=== PATIENT | female | born 1995 | race Caucasian/White ===

== ENCOUNTER → 2016-11-09 | Outpatient (CLI) | payer OTHER ==
[2016-11-09 12:51] LABS: MEAN CORPUSCULAR HEMOGLOBIN 32.6 pg (27.0-33.0); MEAN CORPUSCULAR HGB CONC 33.2 g/dl (32.0-36.5); RED CELL DISTRIBUTION WIDTH 12.8 % (11.5-14.5); WHITE BLOOD COUNT 8.3 K/mm3 (4.0-10.0)
[2016-11-09 13:14] LABS: ALBUMIN 3.3 GM/DL (3.2-5.2); ALBUMIN/GLOBULIN RATIO 0.97 (1.00-1.93); ALKALINE PHOSPHATASE 43 U/L (45-117); ALT/SGPT 18 U/L (12-78); ANION GAP 9 MEQ/L (8-16); AST/SGOT 14 U/L (15-37); BILIRUBIN,TOTAL 0.5 MG/DL (0.2-1.0); BLOOD UREA NITROGEN 13 MG/DL (7-18); CARBON DIOXIDE LEVEL 25 MEQ/L (21-32); CHLORIDE LEVEL 106 MEQ/L (98-107); GLOMERULAR FILTRATION RATE > 60.0 (>60); GLUCOSE, FASTING 80 MG/DL (70-105); POTASSIUM SERUM 4.5 MEQ/L (3.5-5.1); SODIUM LEVEL 140 MEQ/L (136-145); TOTAL PROTEIN 6.7 GM/DL (6.4-8.2)
== END | disposition home or self-care (01) ==
LOC: M SMT 09:54
PROVIDERS: ATTEND Nurse Practitioner Family
DX: L50.1 Idiopathic urticaria (principal)

== ENCOUNTER → 2016-12-28 | Outpatient (CLI) | payer OTHER ==
[2016-12-28 17:25] LABS: MEAN CORPUSCULAR HEMOGLOBIN 32.5 pg (27.0-33.0); MEAN CORPUSCULAR HGB CONC 34.5 g/dl (32.0-36.5); MEAN CORPUSCULAR VOLUME 94.2 fl (80.0-96.0); RED CELL DISTRIBUTION WIDTH 12.2 % (11.5-14.5); WHITE BLOOD COUNT 8.7 K/mm3 (4.0-10.0)
[2016-12-28 18:07] LABS: ALBUMIN 3.6 GM/DL (3.2-5.2); ALBUMIN/GLOBULIN RATIO 1.03 (1.00-1.93); ALKALINE PHOSPHATASE 48 U/L (45-117); ALT/SGPT 13 U/L (12-78); ANION GAP 10 MEQ/L (8-16); AST/SGOT 15 U/L (15-37); BILIRUBIN,TOTAL 0.5 MG/DL (0.2-1.0); BLOOD UREA NITROGEN 8 MG/DL (7-18); CALCIUM LEVEL 8.8 MG/DL (8.5-10.1); CARBON DIOXIDE LEVEL 24 MEQ/L (21-32); CHLORIDE LEVEL 108 MEQ/L (98-107); CREATININE FOR GFR 0.83 MG/DL (0.55-1.02); GLOMERULAR FILTRATION RATE > 60.0 (>60); GLUCOSE, FASTING 80 MG/DL (70-105); POTASSIUM SERUM 4.2 MEQ/L (3.5-5.1); SODIUM LEVEL 142 MEQ/L (136-145); TOTAL PROTEIN 7.1 GM/DL (6.4-8.2)
== END ==
LOC: M LAB 16:33
PROVIDERS: ATTEND Allergy & Immunology Allergy
DX: L50.1 Idiopathic urticaria (principal)

== ENCOUNTER → 2017-03-08 | Outpatient (CLI) | payer OTHER ==
[2017-03-08 13:20] LABS: BASO % 0.2 % (0.0-1.0); EOS % 0.1 % (0.0-3.0); LYMPH # 2.6 K/mm3 (1.5-6.5); LYMPH % 27.8 % (24.0-44.0); MEAN CORPUSCULAR HEMOGLOBIN 32.8 pg (27.0-33.0); MEAN CORPUSCULAR HGB CONC 33.7 g/dl (32.0-36.5); MEAN CORPUSCULAR VOLUME 97.2 fl (80.0-96.0); MONO # 0.3 K/mm3 (0.0-0.8); MONO % 3.5 % (0.0-5.0); NEUTROPHILS # 6.3 K/mm3 (1.8-7.7); NEUTROPHILS % 67.5 % (36.0-66.0); RED CELL DISTRIBUTION WIDTH 12.2 % (11.5-14.5); WHITE BLOOD COUNT 9.4 K/mm3 (4.0-10.0)
[2017-03-08 13:38] LABS: ALBUMIN 3.5 GM/DL (3.2-5.2); ALBUMIN/GLOBULIN RATIO 0.85 (1.00-1.93); ALKALINE PHOSPHATASE 51 U/L (45-117); ALT/SGPT 13 U/L (12-78); ANION GAP 9 MEQ/L (8-16); AST/SGOT 10 U/L (15-37); BILIRUBIN,TOTAL 0.6 MG/DL (0.2-1.0); BLOOD UREA NITROGEN 12 MG/DL (7-18); CALCIUM LEVEL 9.2 MG/DL (8.5-10.1); CARBON DIOXIDE LEVEL 24 MEQ/L (21-32); CHLORIDE LEVEL 106 MEQ/L (98-107); CREATININE FOR GFR 0.93 MG/DL (0.55-1.02); GLOMERULAR FILTRATION RATE > 60.0 (>60); GLUCOSE, FASTING 77 MG/DL (70-105); POTASSIUM SERUM 4.8 MEQ/L (3.5-5.1); SODIUM LEVEL 139 MEQ/L (136-145); TOTAL PROTEIN 7.6 GM/DL (6.4-8.2)
== END ==
LOC: M SMT 09:38
PROVIDERS: ATTEND Nurse Practitioner Family
DX: L50.1 Idiopathic urticaria (principal)

== ENCOUNTER → 2017-05-09 | Outpatient (CLI) | payer OTHER ==
[2017-05-09 13:39] LABS: MEAN CORPUSCULAR HEMOGLOBIN 32.6 pg (27.0-33.0); MEAN CORPUSCULAR HGB CONC 34.3 g/dl (32.0-36.5); RED CELL DISTRIBUTION WIDTH 12.5 % (11.5-14.5); WHITE BLOOD COUNT 6.6 K/mm3 (4.0-10.0)
[2017-05-09 13:54] LABS: ALBUMIN 3.4 GM/DL (3.2-5.2); ALKALINE PHOSPHATASE 46 U/L (45-117); ALT/SGPT 17 U/L (12-78); ANION GAP 9 MEQ/L (8-16); AST/SGOT 10 U/L (15-37); BILIRUBIN,TOTAL 0.5 MG/DL (0.2-1.0); BLOOD UREA NITROGEN 16 MG/DL (7-18); CALCIUM LEVEL 8.9 MG/DL (8.5-10.1); CARBON DIOXIDE LEVEL 24 MEQ/L (21-32); CHLORIDE LEVEL 108 MEQ/L (98-107); CREATININE FOR GFR 1.04 MG/DL (0.55-1.02); GLOMERULAR FILTRATION RATE > 60.0 (>60); GLUCOSE, FASTING 67 MG/DL (70-105); POTASSIUM SERUM 4.6 MEQ/L (3.5-5.1); SODIUM LEVEL 141 MEQ/L (136-145); TOTAL PROTEIN 6.8 GM/DL (6.4-8.2)
== END ==
LOC: M SMT 09:22
PROVIDERS: ATTEND Nurse Practitioner Family
DX: L50.8 Other urticaria (principal)

== ENCOUNTER → 2017-07-12 | Outpatient (CLI) | payer OTHER ==
[2017-07-12 17:21] LABS: CREATININE FOR GFR 0.85 MG/DL (0.55-1.02); GLOMERULAR FILTRATION RATE > 60.0 (>60)
== END ==
LOC: M LAB 07-10 16:28
PROVIDERS: ATTEND Allergy & Immunology
DX: Z79.899 Other long term (current) drug therapy (principal)

== ENCOUNTER → 2021-04-25 | Outpatient (REF) | payer OTHER ==
[2021-04-25 13:37] LABS: HEMATOCRIT 33.9 % (36.0-47.0); HEMOGLOBIN 11.4 g/dl (12.0-15.5); MEAN CORPUSCULAR HEMOGLOBIN 34.8 pg (27.0-33.0); MEAN CORPUSCULAR HGB CONC 33.6 g/dl (32.0-36.5); MEAN CORPUSCULAR VOLUME 103.4 fl (80.0-96.0); PLATELET COUNT, AUTOMATED 294 10^3/uL (150-450); RED BLOOD COUNT 3.28 10^6/uL (4.00-5.40); WHITE BLOOD COUNT 10.5 10^3/uL (4.0-10.0)
[2021-04-25 15:18] LABS: CHLAMYDIA DNA AMPLIFICATION NEGATIVE (NEGATIVE); GC DNA AMPLIFICATION NEGATIVE (NEGATIVE)
== END ==
LOC: M PLALAB 08:23
PROVIDERS: ATTEND Advanced Practice Midwife
DX: O10.012 Pre-existing essential hypertension complicating pregnancy, second trimester (principal); Z3A.00 Weeks of gestation of pregnancy not specified
CPT/HCPCS: 82950; 85027; 86850; 86900; 86901; 87491; 87591; G0463

== ENCOUNTER → 2021-06-13 | Outpatient (CLI) | payer OTHER ==
--- NOTE | 2021-06-13 15:23 | REP ---
INDICATION: HYPERTENSION/GROWTH/KRISTEN. COMPARISON: None. TECHNIQUE: Multiple ultrasonographic images of the gravid uterus for size and amniotic fluid volume. There are no comparison studies in our film file. FINDINGS: There is a single intrauterine gestation in a breech presentation. heart rate is 139 beats per minute. The placenta is anterior with grade 1 maturity. There is no placenta previa. Amniotic fluid index is 9.2 (8.4-24.4). Cervix measures 3.6 cm length. The composite ultrasound gestational age by today's ultrasound is 32 weeks 2 days with an CISCO of 08/06/2021. The LMP is unknown. weight is 1906 g/4 lb, 3 oz. This is the 24th percentile for 32 weeks 5 days. Umbilical artery Doppler assessment: PSV: 33.6 centimeters/second. EDV: 17.0 centimeters/second. S/D: 1.98 (1.80-3.80). RI: 0.49 (0.49-0.74). IMPRESSION: Amniotic fluid index is in the low normal range. <Electronically signed by Albert Lowe > 06/13/21 [id number]
== END ==
LOC: M WHC 13:56
PROVIDERS: ATTEND Advanced Practice Midwife
DX: O10.019 Pre-existing essential hypertension complicating pregnancy, unspecified trimester (principal); Z3A.32 32 weeks gestation of pregnancy
CPT/HCPCS: 59025; 76816; 76820; 90715; G0463

== ENCOUNTER 2021-06-23 09:56 | Inpatient (IN) | payer OTHER ==
[~2021-06-23] VITALS: Ht 170.2 cm; Wt 80.0 kg
[2021-06-23] MEDS ORDERED: TUMS500C PO (10:17)
[2021-06-23] MEDS ORDERED: PRENTAB9 PO (10:17)
[2021-06-23] MEDS ORDERED: MAGN250T7 PO (10:17)
[2021-06-23] MEDS ORDERED: ASPI81CH33 PO (10:17)
[2021-06-23] MEDS ORDERED: LABE100T5 PO (10:17)
[2021-06-23] MEDS ORDERED: HOME MED LIST COMPLETE! XX SCH (10:30)
[2021-06-23] MEDS ORDERED: BETAMETHASONE SOLUSPAN 6MG/ML 5ML VIAL (J0702 PER 3MG) IM ONE (11:00)
[2021-06-23 11:27] VITALS: BP 127/77
[2021-06-23] MEDS: BETAMETHASONE SOLUSPAN 6MG/ML 5ML VIAL (J0702 PER 3MG) IM SCH (11:29)
--- NOTE | 2021-06-23 11:35 | REP ---
INDICATION: BPP with KRISTEN. COMPARISON: 06/13/2021. TECHNIQUE: Real-time sonographic evaluation of gravid uterus performed. FINDINGS: There is a single living intrauterine gestation, estimated gestational age is reportedly 34 weeks 1 day, EDC 08/03/2021. position is breech. Placenta is anterior and grade 1 with no previa. heart rate is 145 beats per minute. There is oligohydramnios. KRISTEN 3.6, normal range 8.1-24.8. Biophysical profile score 8/8. SD ratio umbilical artery 3.10, normal 1.72-3.67. RI 0.68, normal 0.47-0.73. Cervix is closed and incidental note is made of a nuchal cord. Measures 3.2 cm in length. IMPRESSION: Oligohydramnios. KRISTEN 3.6. Biophysical profile score 8/8. <Electronically signed by Albert Fraga > 06/23/21 [id number]
[2021-06-23 11:44] VITALS: BP 121/59
[2021-06-23 11:59] VITALS: BP 120/64
[2021-06-23 12:14] VITALS: BP 133/78
[2021-06-23] MEDS ORDERED: LACTATED RINGER'S 1000 ML IV ONE (12:45)
[2021-06-23] MEDS: PRENATAL VITAMINS CHEWABLE TABLET PO SCH (13:23)
[2021-06-23 14:20] VITALS: BP 128/70
[2021-06-23] MEDS ORDERED: ASPIRIN 81 MG CHEW TABLET PO SCH (21:00)
[2021-06-23 21:07] VITALS: BP 131/65
[2021-06-24 07:04] VITALS: BP 145/85
[2021-06-24 07:59] VITALS: BP 122/68
[2021-06-24] MEDS ORDERED: ACETAMINOPHEN 500 MG TAB PO ONE (08:20)
[2021-06-24] MEDS: PRENATAL VITAMINS CHEWABLE TABLET PO SCH (08:20)
[2021-06-24] MEDS: LABETALOL 100MG TAB PO SCH ×2 (08:20→20:54)
[2021-06-24] MEDS ORDERED: LR 1,000 ML IV ONE (09:55)
[2021-06-24 11:58] VITALS: BP 127/62
[2021-06-24] MEDS: BETAMETHASONE SOLUSPAN 6MG/ML 5ML VIAL (J0702 PER 3MG) IM SCH (12:04)
--- NOTE | 2021-06-24 12:22 | REP ---
INDICATION: FOLLOW UP OLIGOHYDRAMNIOS COMPARISON: 06/23/2021 TECHNIQUE: Transabdominal obstetrical ultrasound with color Doppler evaluation. FINDINGS: Examination again demonstrates a single live intrauterine in breech presentation. motion is identified by technologist. Placenta is noted anterior and grade 1 without evidence for placenta previa or abruption. Amniotic fluid volume is decreased (KRISTEN 4.8 cm). Nuchal cord noted. Selected gestational age: 34 weeks 2 days with CISCO 08/03/2021. FHR equals 150 beats per minute. Biophysical profile score: 8/8 Umbilical artery SD ratio: 2.24 IMPRESSION: 1. Oligohydramnios with amniotic fluid index at 4.8 cm. 2. Nuchal cord again noted. 3. Biophysical profile score normal. <Electronically signed by Gerry Patel > 06/24/21 [id number]
[2021-06-24 14:57] VITALS: BP 125/65
[2021-06-24 19:10] VITALS: BP 119/69
[2021-06-24] MEDS ORDERED: BICITRA 30ML SOLN UDC PO ONE (20:40)
[2021-06-24] MEDS ORDERED: ceFAZolin SOD 2 GM in IV 1 EA IV ONE (20:40)
[2021-06-24 20:53] VITALS: BP 131/62
[2021-06-24] MEDS: LR 1,000 ML IV SCH (20:54)
--- NOTE | 2021-06-24 21:11 | HPEPDOC ---
Obstetrical History & Physical General Date of Admission Jun 24, 2021 at 20:01 History of Present Illness 25-year-old at 34+2 weeks gestation. Presented yesterday for routine pren atal/COB, antepartum testing. APFT significant for recurrent variable decelerations. She was sent for a formal US/BPP. US BPP was 6/8 and notable for KRISTEN of 4.8cm. US also notable for nuchal cord and breech presentation. She is complicated by CHTN and BP has been controlled with Labetalol 100mg BID. She has also been taking ASA 81mg. She was continuously monitored since her hospital arrival and intermittent variable decelerations have persisted. Betamethasone was started and she is due for her second dose tomorrow AM. She denies vaginal bleeding, loss of fluid or painful, frequent uterine contractions. She reports regular movement. She denies headache, visual changes, right upper quadrant pain, shortness of breath or chest pain. 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 labs: Blood type A+, antibody screen negative, HepBsAg neg, HIV neg, rubella immune, Hep C antibody negative, RPR nonreactive, CT/GC neg, urine culture negative, 1 hour glucose challenge test 73 , GBS unknown. Past Medical History Allergies Coded Allergies: No Known Allergies (Verified , 06/23/21) Medications Scheduled Aspirin (Aspirin) 81 Mg Tab.chew, 81 MG PO DAILY for pain Calcium Carbonate (Tums) 200 Mg Tab.chew, 2 TAB PO QID for cough and congestion Labetalol HCl (Labetalol HCl) 100 Mg Tablet, 1 TAB PO BID Magnesium Oxide (Magnesium) 250 Mg Tablet, 500 MG PO DAILY No.137/Iron/Folic Acd ( Vitamin Tablet) 1 Each Tablet, 1 TAB PO DAILY Physical Examination Physical Examination GENERAL: Alert and oriented times three. ABDOMEN: Gravid and non-tender to touch. FETUS: Is vertex (VTX) by sterile vaginal examination (SVE), fetus is vertex (VTX) by Jensen. HEART RATE: Regular rate and rhythm. LUNGS: Clear to auscultation (CTA). EXTREMITIES: No edema. No clonus. See US report EFM: Periods of Cat II, predominantly Cat I [place]: no ctx pattern Vital Signs/I&O Vital Signs Date Time Temp Pulse Resp B/P (MAP) Pulse Ox O2 Delivery O2 Flow Rate FiO2 06/24/21 19:10 98.6 94 18 119/69 (86) I&O- Last 24 Hours up to 6 AM 06/24/21 06:00 Intake Total 1000 ml Balance 1000 ml Laboratory Data Microbiology Microbiology 06/23/21 Group B Streptococcus Screen (JOSHUA), Received Pending Assessment/Plan Assessment 25yo G1 at 34+2 weeks EGA. CHTN w/ oligohydramnios and abnormal APFT. Intermittent Cat II FHR. Current maternal / status stable, not requiring emergent delivery. Breech presentation. Plan Admitted on 06/24 Continuous monitoring, aggressive PO hydration. Repeat bedside US tomorrow for AFV / presentation assessment Continue Labetalol. Hold ASA Betamethasone #1 06/23, #2 06/24 @ 1204; Steroid complete tomorrow. Current mode of delivery plan: PLTCS (indication: breech). Timing of delivery reviewed with the patient. Extensive conversation regarding r/b/a/i of delivery vs expectant management/APFT until 36-37 weeks. Patient much prefers to proceed with delivery once she is steroid complete to mitigate risks of complications from oligohydramnios. DO KALI Mathews JONATHAN R. DO Jun 24, 2021 21:11
[2021-06-25] VITALS (9 sets, daily range): BP systolic 111–131; BP diastolic 58–83
[2021-06-25] MEDS: LR 1,000 ML IV SCH (03:30)
[2021-06-25 07:56] LABS: HEMATOCRIT 33.3 % (36.0-47.0); HEMOGLOBIN 11.5 g/dl (12.0-15.5); MEAN CORPUSCULAR HEMOGLOBIN 34.1 pg (27.0-33.0); MEAN CORPUSCULAR HGB CONC 34.5 g/dl (32.0-36.5); MEAN CORPUSCULAR VOLUME 98.8 fl (80.0-96.0); PLATELET COUNT, AUTOMATED 288 10^3/uL (150-450); RED BLOOD COUNT 3.37 10^6/uL (4.00-5.40); WHITE BLOOD COUNT 18.5 10^3/uL (4.0-10.0)
[2021-06-25 08:19] LABS: CREATININE,RANDOM URINE 85.6 MG/DL; TOTAL PROTEIN,RANDOM URINE 15.3 MG/DL (0.0-12.0)
[2021-06-25 08:21] LABS: ALT/SGPT 15 U/L (12-78); BILIRUBIN,TOTAL 0.2 MG/DL (0.2-1.0); GLOMERULAR FILTRATION RATE > 60.0 (>60); LDH LACTATE DEHYDROGENASE 152 U/L (84-246); URIC ACID 2.6 MG/DL (2.6-6.0)
[2021-06-25] MEDS: LABETALOL 100MG TAB PO SCH ×2 (09:00→21:05)
[2021-06-25] MEDS ORDERED: BICITRA 30ML SOLN UDC PO SCH (12:00)
[2021-06-25] MEDS ORDERED: ceFAZolin SOD 2 GM in IV 1 EA IV ONE (12:00)
[2021-06-25] MEDS ORDERED: NALOXONE INJ 0.4MG/1ML VIAL (J2310 PER 1MG) IV PRN ×2 (12:14)
[2021-06-25] MEDS ORDERED: METOCLOPRAMIDE INJ 10MG/2ML VIAL (J2765 PER 1) IV PRN ×2 (12:14→13:25)
[2021-06-25] MEDS ORDERED: ONDANSETRON 4MG/2ML VIAL IV PRN ×4 (12:14→13:25)
[2021-06-25] MEDS ORDERED: diphenhydrAMINE 50MG/ML VIAL (J1200) IV PRN (12:14)
[2021-06-25] MEDS ORDERED: NALBUPHINE HCL 10 MG/ML AMP (J2300) IV PRN (12:14)
[2021-06-25] MEDS ORDERED: OXYTOCIN 30 UNITS IN 0.9% NaCl 500ML IV BAG (J2590) As Ordered ONE ×2 (12:26→13:39)
[2021-06-25] MEDS ORDERED: MORPHINE PRES-FREE INJ 10 MG/10 ML VIAL (J2274) As Ordered ONE (12:26)
[2021-06-25] MEDS ORDERED: ONDANSETRON 4MG/2ML VIAL As Ordered ONE (12:26)
[2021-06-25] MEDS ORDERED: fentaNYL 100 MCG/2 ML INJECTION (J3010) As Ordered ONE ×2 (12:36→13:32)
[2021-06-25] MEDS ORDERED: propofoL 200 MG/20 ML VIAL As Ordered ONE (12:37)
[2021-06-25 13:03] LABS: CORD GAS ABE V -2.3; CORD GAS HCO3 V 23.1 MEQ/L; CORD GAS O2 SAT V 70.7 %; CORD GAS PCO2 V 41.9 mmHg; CORD GAS PH V 7.359 UNITS; CORD GAS PO2 V 28.3 mmHg; CORD GAS SBC V 21.9 MEQ/L; CORD GAS TCO2 V 24.4 MEQ/L
[2021-06-25 13:04] LABS: CORD GAS ABE A -3.5; CORD GAS HCO3 A 22.8 MEQ/L; CORD GAS O2 SAT A 38.4 %; CORD GAS PCO2 A 46.1 mmHg; CORD GAS PH A 7.313 UNITS; CORD GAS PO2 A 17.6 mmHg; CORD GAS SBC A 20.3 MEQ/L; CORD GAS TCO2 A 24.3 MEQ/L
[2021-06-25] MEDS ORDERED: KETOROLAC 60MG 2ML VIAL As Ordered ONE (13:10)
[2021-06-25] MEDS ORDERED: MEASLES,MUMPS,RUBELLA VACCINE INJ (MMR-II) (90707) SC SCH (13:15)
[2021-06-25] MEDS ORDERED: ACETAMINOPHEN 500 MG TAB PO PRN (13:15)
[2021-06-25] MEDS ORDERED: RHOGAM 300 MCG (1500 IU) INJ (J2790) IM SCH (13:15)
[2021-06-25] MEDS ORDERED: LR 1,000 ML IV SCH ×2 (13:15→13:25)
[2021-06-25] MEDS ORDERED: OXYTOCIN DRIP 30 UNITS in IV 1 EA IV SCH (13:15)
--- NOTE | 2021-06-25 13:19 | ROOPDOC ---
[facility] Report Of Operation Report of Operation DATE OF PROCEDURE: 06/25/2021 PREPROCEDURE DIAGNOSES: 34+3 weeks gestation steroid complete, oligohydramnios, abnormal antepartum testing, breech presentation, chronic hypertension POSTPROCEDURE DIAGNOSES: Same PROCEDURE: Primary low transverse section SURGEON: Marco Madden DO FACOG [employer] INTERN: Moose Strong CNM (Essential role in retraction, extraction, and closure of all tissue layers) ANESTHESIA: Spinal w/ Duramorph ESTIMATED BLOOD LOSS: 500 mL. IV FLUIDS: 1000 mL LR URINE OUTPUT: 175 mL COMPLICATIONS: None. PREOPERATIVE ANTIBIOTICS: Ancef 2g IV x 1. COMPLICATIONS: none DATA: Apgars 8 and 9. Birthweight 2162 g, 4 lbs 12 oz. Cord gases: see CPower SPECIMENS: none PRIMARY INDICATION FOR : Abnormal antepartum testing and oligohydramnios DESCRIPTION OF PROCEDURE: The patient was counseled on the risks, benefits, indications and alternatives of the procedure. Informed consent was obtained. She was taken to the operating room with IV running and placed on the operating table in the dorsal supine position with a leftward tilt. Regional anesthesia was found to be adequate. Sequential compression devices were placed on the lower extremities. A Richards catheter was placed under sterile conditions. She was prepared and draped in normal sterile fashion. A time out was performed per protocol. Regional anesthesia was again found to be adequate. A Pfannenstiel skin incision was made with the 10 blade. The 10 blade was used to dissect down to the level of the rectus sheath fascia. The rectus sheath pressure was incised midline and this was extended bilaterally with Mcbride scissors , and manual stretch. The rectus muscle bellies were dissected off the rectus sheath fascia superiorly and inferiorly using both sharp and blunt dissection. The midline was identified. The peritoneum was identified and entered digitally. The peritoneal opening was extended with manual stretch. The Mobius retractor was placed. The vesicouterine peritoneum was dissected with Metzenbaum scissors to create the bladder flap. A low transverse uterine incision was made with the 10 blade. This was extended with manual stretch. The amniotic sac was punctured, and clear fluid was noted. The baby delivered through the hysterotomy without difficulty. The cord was doubly clamped and cut, and the baby was handed off to awaiting care. data shown above. Cord blood obtained. Cord gases were obtained. The placenta was removed manually. The intrauterine cavity was cleared of all clot and debris. The hysterotomy was closed with 0 Vicryl in running locked fashion. This was reinforced with a second imbricating layer using 0 Vicryl in running fashion. Excellent hemostasis of the hysterotomy was noted. The pelvis was irrigated and the fluid suctioned. The Mobius retractor was removed. The peritoneum was closed with 3-0 Vicryl running fashion. The rectus muscle bellies were reapproximated with interrupted stitches using 3-0 Vicryl. The rectus muscles bellies were hemostatic. The rectus sheath fascia was closed with 0 Vicryl running fashion. The subcutaneous layer was irrigated and the fluid suctioned. Small bleeding vessels were cauterized with Bovie. Excellent hemostasis was noted. The subcutaneous layer was reapproximated with 3-0 Vicryl running fashion. Skin was closed with 3-0 Monocryl in subcuticular fashion. An Optifoam bandage was placed over the closed incision. Sponge, needle and instrument counts were correct per protocol throughout the procedure. The patient tolerated the entire procedure very well. She was transferred to the PACU in stable condition. DO DALLAS Dobbs JONATHAN R. DO Jun 25, 2021 13:19
[2021-06-25] MEDS ORDERED: PERCOCET 5MG/325MG TAB PO PRN (13:25)
[2021-06-25] MEDS: fentaNYL 100 MCG/2 ML INJECTION (J3010) IV PRN ×2 (13:38→14:02)
[2021-06-25] MEDS: PERCOCET 5MG/325MG TAB PO PRN ×2 (15:31→22:37)
[2021-06-25] MEDS: KETOROLAC 30 MG/ML 1ML VIAL IV SCH (18:46)
[2021-06-25] MEDS: DOCUSATE SODIUM 100MG CAPSULE PO SCH (21:05)
[2021-06-26] MEDS: KETOROLAC 30 MG/ML 1ML VIAL IV SCH ×2 (01:52→06:11)
[2021-06-26 01:56] VITALS: BP 103/59
[2021-06-26] MEDS: PERCOCET 5MG/325MG TAB PO PRN ×3 (06:16→19:16)
[2021-06-26 06:19] VITALS: BP 129/84
[2021-06-26] MEDS: PRENATAL VITAMINS CHEWABLE TABLET PO SCH (08:42)
[2021-06-26] MEDS: MAGNESIUM OXIDE 400MG TAB (MAG-OX) PO SCH (08:42)
[2021-06-26] MEDS: LABETALOL 100MG TAB PO SCH ×2 (08:43→20:04)
[2021-06-26] MEDS: DOCUSATE SODIUM 100MG CAPSULE PO SCH ×2 (08:43→20:04)
[2021-06-26] MEDS ORDERED: PRENATAL VITAMINS CHEWABLE TABLET PO SCH (09:00)
--- NOTE | 2021-06-26 09:03 | IPNPDOC ---
Progress Note Date of Service: Jun 26, 2021 Day#: 1 Progress Note SUBJECT: Status post PLTCS for breech presentation at 34+3 weeks and oligohydr amnios with abnormal antepartum testing. She has been ambulating, voiding spontaneously without issue and tolerating regular diet. Lochia decreasing/minimal. Pain is well-controlled. Incision bandage is clean/unsaturated. Denies headache, visual changes, right upper quadrant pain, shortness of breath or chest pain. OBJECTIVE: VITAL SIGNS: Within normal limits, afebrile. Alert and oriented times three. Abdomen: Fundus firm at U-2. Soft, NTTP. Incision bandage not soaked through ASSESSMENT: Status post uncomplicated PLTCS. Vitals within normal limits, afebrile, hemodynamically stable with no evidence of infection. PLAN: Discharge to home tomorrow Routine /postoperative advancement Postoperative instructions/precautions reviewed. Routine PP visit at 2 and 6 weeks in clinic. VS, I&O, 24H, Fishbone Vital Signs/I&O Vital Signs Date Time Temp Pulse Resp B/P (MAP) Pulse Ox O2 Delivery O2 Flow Rate FiO2 06/26/21 08:43 79 129/84 06/26/21 06:50 18 06/26/21 06:19 97.8 97 Room Air I&O- Last 24 Hours up to 6 AM 06/26/21 05:59 Intake Total 2150 ml Output Total 1775 ml Balance 375 ml Laboratory Data 24H LABS Laboratory Tests 2 06/25/21 11:03: Serology Scanned Report Hepatitis B Testing 06/25/21 12:36: Cord Arterial Blood pH 7.313, Cord Arterial Blood PCO2 46.1, Cord Arterial Blood PO2 17.6, Cord Arterial Blood HCO3 22.8, Cord Arterial Blood Total CO2 24.3, Cord Arterial Blood Base Excess -3.5, Cord Arterial Base Excess (Standard 20.3, Cord Arterial Bld Oxygen Saturation 38.4, Cord Venous Blood pH 7.359, Cord Venous Blood PCO2 41.9, Cord Venous Blood PO2 28.3, Cord Venous Blood HCO3 23.1, Cord Venous Blood Total CO2 24.4, Cord Venous Base Excess (Actual) -2.3, Cord Venous Base Excess (Standard) 21.9, Cord Venous Blood Oxygen Saturation 70.7 CBC/BMP Microbiology Microbiology 06/23/21 Group B Streptococcus Screen (JOSHUA) - Final, Complete AARON BASS DO Jun 26, 2021 09:03
[2021-06-26 09:09] LABS: HEMATOCRIT 31.9 % (36.0-47.0); HEMOGLOBIN 10.9 g/dl (12.0-15.5); MEAN CORPUSCULAR HEMOGLOBIN 33.9 pg (27.0-33.0); MEAN CORPUSCULAR HGB CONC 34.2 g/dl (32.0-36.5); MEAN CORPUSCULAR VOLUME 99.1 fl (80.0-96.0); PLATELET COUNT, AUTOMATED 285 10^3/uL (150-450); RED BLOOD COUNT 3.22 10^6/uL (4.00-5.40); WHITE BLOOD COUNT 16.5 10^3/uL (4.0-10.0)
[2021-06-26] MEDS ORDERED: COLA100C5 PO (09:56)
[2021-06-26] MEDS ORDERED: IBUP80TA PO (09:56)
[2021-06-26] MEDS ORDERED: PERCOCET PO (09:56)
[2021-06-26 14:00] VITALS: BP 125/72
[2021-06-26] MEDS: IBUPROFEN 800 MG TAB PO SCH ×2 (15:11→22:03)
[2021-06-26 17:58] VITALS: BP 150/90
[2021-06-26] MEDS: SIMETHICONE 80MG CHEW TAB PO PRN (19:16)
[2021-06-26] MEDS: MOM 30ML SUSPENSION UDC PO PRN (20:14)
[2021-06-26 22:00] VITALS: BP 125/76
[2021-06-27] MEDS: PERCOCET 5MG/325MG TAB PO PRN ×5 (01:34→22:06)
[2021-06-27 02:00] VITALS: BP 136/80
[2021-06-27 06:00] VITALS: BP 127/74
[2021-06-27] MEDS: SIMETHICONE 80MG CHEW TAB PO PRN ×2 (06:02→20:05)
[2021-06-27] MEDS: MOM 30ML SUSPENSION UDC PO PRN (06:02)
[2021-06-27] MEDS: IBUPROFEN 800 MG TAB PO SCH ×3 (06:02→22:06)
[2021-06-27] MEDS: MAGNESIUM OXIDE 400MG TAB (MAG-OX) PO SCH (08:24)
[2021-06-27] MEDS: DOCUSATE SODIUM 100MG CAPSULE PO SCH ×2 (08:24→20:05)
[2021-06-27] MEDS: PRENATAL VITAMINS CHEWABLE TABLET PO SCH (08:24)
[2021-06-27] MEDS: LABETALOL 100MG TAB PO SCH ×2 (08:25→20:06)
--- NOTE | 2021-06-27 08:33 | IPNPDOC ---
Progress Note Date of Service: Jun 27, 2021 Day#: 1 Progress Note SUBJECT: Doing well without complaints. Ambulating, voiding and pain is well-c ontrolled. Reports minimal lochia. OBJECTIVE: VITAL SIGNS: Within normal limits, afebrile. Alert and oriented times three. Abdomen: Fundus firm at U-2. Soft, NTTP. Incision: dressed Ext: neg calf tenderness. ASSESSMENT: /postoperative day #2 status post delivery. Recovering in stable condition. PLAN: 1. Continue routine /postoperative care 2. Discharge plans for tomorrow VS, I&O, 24H, Fishbone Vital Signs/I&O Vital Signs Date Time Temp Pulse Resp B/P (MAP) Pulse Ox O2 Delivery O2 Flow Rate FiO2 06/27/21 08:26 18 06/27/21 08:25 127/74 06/27/21 06:00 97.9 80 97 Room Air Laboratory Data Microbiology Microbiology 06/23/21 Group B Streptococcus Screen (JOSHUA) - Final, Complete MIEK CESPEDES MD. Jun 27, 2021 08:33
[2021-06-27 10:00] VITALS: BP 107/55
[2021-06-27 22:00] VITALS: BP 129/53
[2021-06-28 06:00] VITALS: BP 145/93
[2021-06-28] MEDS: IBUPROFEN 800 MG TAB PO SCH (06:17)
[2021-06-28] MEDS: PERCOCET 5MG/325MG TAB PO PRN (07:38)
--- NOTE | 2021-06-28 08:22 | DS.PDOC ---
Discharge Summary General Date of Admission Jun 24, 2021 at 20:01 Discharge Summary PROCEDURES PERFORMED DURING STAY: [None]. ADMITTING DIAGNOSES: 1. . DISCHARGE DIAGNOSES: 1. . COMPLICATIONS/CHIEF COMPLAINT: BPP. HISTORY OF PRESENT ILLNESS: . HOSPITAL COURSE: . DISCHARGE MEDICATIONS: Please see below. ALLERGIES: Please see below. PHYSICAL EXAMINATION ON DISCHARGE: VITAL SIGNS: Please see below. GENERAL: HEENT: NECK: CARDIOVASCULAR EXAMINATION: RESPIRATORY EXAMINATION: ABDOMINAL EXAMINATION: EXTREMITIES: SKIN: NEUROLOGICAL EXAMINATION: PSYCHIATRIC EXAMINATION: LABORATORY DATA: Please see below. IMAGING: PROGNOSIS: ACTIVITY: [As tolerated]. DIET: DISCHARGE PLAN: DISPOSITION: . DISCHARGE INSTRUCTIONS: 1. . ITEMS TO FOLLOWUP ON ON OUTPATIENT: 1. . DISCHARGE CONDITION: [Stable]. TIME SPENT ON DISCHARGE: minutes. Vital Signs/I&Os Vital Signs Date Time Temp Pulse Resp B/P (MAP) Pulse Ox O2 Delivery O2 Flow Rate FiO2 06/28/21 07:38 18 06/28/21 06:00 97.3 76 145/93 (110) 98 Room Air Microbiology Microbiology 06/23/21 Group B Streptococcus Screen (JOSHUA) - Final, Complete Discharge Medications Scheduled Aspirin (Aspirin) 81 Mg Tab.chew, 81 MG PO DAILY for pain, (Reported) Calcium Carbonate (Tums) 200 Mg Tab.chew, 2 TAB PO QID for cough and congestion, (Reported) Docusate Sodium (Colace) 100 Mg Capsule, 100 MG PO BID Ibuprofen (Ibuprofen) 800 Mg Tablet, 800 MG PO Q8H Labetalol HCl (Labetalol HCl) 100 Mg Tablet, 1 TAB PO BID, (Reported) Magnesium Oxide (Magnesium) 250 Mg Tablet, 500 MG PO DAILY, (Reported) No.137/Iron/Folic Acd ( Vitamin Tablet) 1 Each Tablet, 1 TAB PO DAILY, (Reported) Scheduled PRN Oxycodone/Acetaminophen (Oxycodone-Acetaminophen 5-325) 1 Each Tablet, 1 TAB PO Q4H PRN for MILD/MODERATE PAIN (PS 1-7) Allergies Coded Allergies: No Known Allergies (Verified , 06/23/21) MIKE CESPEDES MD. Jun 28, 2021 08:22
[2021-06-28] MEDS: PRENATAL VITAMINS CHEWABLE TABLET PO SCH (09:35)
[2021-06-28] MEDS: MAGNESIUM OXIDE 400MG TAB (MAG-OX) PO SCH (09:35)
[2021-06-28] MEDS: DOCUSATE SODIUM 100MG CAPSULE PO SCH (09:35)
[2021-06-28 09:36] VITALS: BP 145/93
[2021-06-28] MEDS: LABETALOL 100MG TAB PO SCH (09:36)
--- NOTE | 2021-06-29 09:30 | IPN ---
DATE: 06/23/2021 SUBJECTIVE: [place] is a 25-year-old 1, para 0 at 34 weeks and 1 day, EDC of 08/03/2021 based on first trimester ultrasound. She presents to labor and delivery today following a routine appointment in the office where she was having an NST and noted to have a heart rate of category 2 due to a few variable decelerations with movement. Her course was initiated out of state and with a transfer of care to [facility] in the second trimester. Her course was complicated by chronic hypertension. She is taking labetalol 100 mg twice a day and aspirin 81 mg. She started antepartal testing which has been reassuring until today's presentation. She denies contractions, vaginal bleeding, leakage of fluid, and the fetus has been active. OBSTETRIC HISTORY: Prima . OBSTETRIC LABS: A+, antibody screen negative, gonorrhea and chlamydia negative, hepatitis B negative, rubella equivocal. Hepatitis C negative. HIV negative. Rubella immune. Urine culture no growth. PAST MEDICAL HISTORY: 1. Chronic HEENT. 2. Chronic urticaria. PAST SURGICAL HISTORY: None. FAMILY HISTORY: Hypertension and hypothyroid. SOCIAL HISTORY: The patient is . She is a nonsmoker. Denies alcohol and drug use. No history of sexually transmitted infections. She denies history of abuse, physical, sexual, and emotional. ALLERGIES: No known drug allergies. CURRENT MEDICATIONS: 1. Aspirin 81 mg daily. 2. Labetalol 100 mg p.o. twice daily. 3. vitamin. OBJECTIVE: Vital signs: Blood pressure 128/70. The heart rate is 140 at this time with moderate variability, positive accelerations. There are no current variable decelerations observed. There is no pattern of contractions. She did undergo a biophysical profile that returned 8 out of 8. However, of note she has oligohydramnios with 3.6 cm of amniotic fluid noted and the fetus is in breech presentation. ASSESSMENT: 1. Intrauterine at 34 and 1/7 weeks. 2. Oligohydramnios. PLAN: Per consult with Dr. Marco Madden, current outpatient status, IV fluid bolus at this time, regular diet. Betamethasone for lung maturity. Repeat that in 24 hours. The plan is to have her on continuous monitoring until she is beta complete. She will receive another IV fluid bolus in the morning and then a reassessment with BPP and KRISTEN. Plan of care for delivery will be made following the results of those testings. I did review the results and the plan of care with the patient, her , and her mother. All of their questions have been answered. ADELINA
== END 2021-06-28 11:15 | disposition home or self-care (01) | DRG 772 ==
LOC: M LDO 09:56 → M LDI 06-24 20:01 → M OBS 06-25 15:00
PROVIDERS: ADMIT Obstetrics & Gynecology; ATTEND Advanced Practice Midwife
PROC: 10D00Z1 Extraction of Products of Conception, Low, Open Approach (ICD-10-PCS; principal; 2021-06-25 12:00)
DX: O32.1XX0 Maternal care for breech presentation, not applicable or unspecified (principal); O41.03X0 Oligohydramnios, third trimester, not applicable or unspecified; O10.92 Unspecified pre-existing hypertension complicating childbirth; Z37.0 Single live birth; Z3A.34 34 weeks gestation of pregnancy; Z79.899 Other long term (current) drug therapy

== ENCOUNTER → 2021-09-06 | Outpatient (REF) | payer OTHER ==
[~2021-09-06] MED LIST: ASPI81CH33 PO; COLA100C5 PO; IBUP80TA PO; LABE100T5 PO; MAGN250T7 PO; PERCOCET PO; PRENTAB9 PO; TUMS500C PO
== END ==
LOC: M SFHCWAGY 13:06
PROVIDERS: ATTEND Obstetrics & Gynecology
DX: Z12.4 Encounter for screening for malignant neoplasm of cervix (principal); Z77.9 Other contact with and (suspected) exposures hazardous to health
CPT/HCPCS: G0123; G0463

== ENCOUNTER → 2022-03-07 | Outpatient (CLI) | payer OTHER | LOC: M LABSMTC 10:32 | PROVIDERS: ATTEND Pediatrics | DX: Z20.822 Contact with and (suspected) exposure to COVID-19 (principal) | CPT/HCPCS: 87426; C9803 ==

== ENCOUNTER → 2022-04-25 | Outpatient (CLI) | payer OTHER | LOC: M LABSMTC 11:41 | PROVIDERS: ATTEND Family Medicine | DX: Z20.822 Contact with and (suspected) exposure to COVID-19 (principal) | CPT/HCPCS: 87426; C9803 ==

== ENCOUNTER → 2023-02-08 | Outpatient (REF) | payer OTHER ==
[~2023-02-08] MED LIST changes: -LABE100T5 PO; +LABE100T71 PO
== END ==
LOC: M PLALAB 10:15
PROVIDERS: ATTEND Advanced Practice Midwife
DX: Z12.4 Encounter for screening for malignant neoplasm of cervix (principal)
CPT/HCPCS: G0123; G0463

== ENCOUNTER → 2024-02-28 | Outpatient (REF) | payer OTHER ==
[~2024-02-28] MED LIST changes: +LABE100T40 PO; -LABE100T71 PO
== END ==
LOC: M SFHCWAGY 12:23
PROVIDERS: ATTEND Advanced Practice Midwife
DX: Z12.4 Encounter for screening for malignant neoplasm of cervix (principal); R87.610 Atypical squamous cells of undetermined significance on cytologic smear of cervix (ASC-US)
CPT/HCPCS: 87624; G0123

== ENCOUNTER → 2024-03-12 | Outpatient (CLI) | payer OTHER | LOC: M LAB 17:43 | PROVIDERS: ATTEND Advanced Practice Midwife | DX: R63.5 Abnormal weight gain (principal); N92.6 Irregular menstruation, unspecified ==

== ENCOUNTER → 2024-03-31 | Outpatient (CLI) | payer OTHER ==
[2024-03-31 13:35] LABS: THYROID STIMULATING HORMONE 3.513 uIU/ML (0.55-4.78)
[2024-03-31 13:37] LABS: FOLLICLE STIMULATING HORMONE 4.8 mIU/ML; LUTEINIZING HORMONE 2.9 mIU/ML
[2024-03-31 13:38] LABS: ESTRADIOL 46.3 PG/ML; FREE T4 0.95 NG/DL (0.89-1.76)
== END ==
LOC: M PLALAB 07:55
PROVIDERS: ATTEND Advanced Practice Midwife
DX: N92.6 Irregular menstruation, unspecified (principal); R63.5 Abnormal weight gain

== ENCOUNTER → 2024-04-10 | Outpatient (REF) | payer OTHER | LOC: M SFHCWAGY 15:03 | PROVIDERS: ATTEND Specialist | DX: N87.0 Mild cervical dysplasia (principal) ==

== ENCOUNTER → 2024-07-10 | Outpatient (REF) | payer OTHER | LOC: M PLALAB 11:41 | PROVIDERS: ATTEND Advanced Practice Midwife | DX: Z53.20 Procedure and treatment not carried out because of patient's decision for unspecified reasons (principal) ==

== ENCOUNTER → 2024-07-16 | Outpatient (CLI) | payer OTHER | LOC: M WHC 13:45 | PROVIDERS: ATTEND Advanced Practice Midwife | DX: O30.099 Twin pregnancy, unable to determine number of placenta and number of amniotic sacs, unspecified trimester (principal) ==

== ENCOUNTER → 2024-07-17 | Outpatient (CLI) | payer OTHER ==
[2024-07-17 15:46] LABS: HEMATOCRIT 33.9 % (36.0-47.0); HEMOGLOBIN 11.7 g/dl (12.0-15.5); MEAN CORPUSCULAR HEMOGLOBIN 34.1 pg (27.0-33.0); MEAN CORPUSCULAR HGB CONC 34.5 g/dl (32.0-36.5); MEAN CORPUSCULAR VOLUME 98.8 fl (80.0-96.0); PLATELET COUNT, AUTOMATED 313 10^3/uL (150-450); RED BLOOD COUNT 3.43 10^6/uL (4.00-5.40); WHITE BLOOD COUNT 11.4 10^3/uL (4.0-10.0)
[2024-07-17 16:10] LABS: TOTAL PROTEIN,RANDOM URINE 8.1 MG/DL (0.0-14.0)
[2024-07-17 16:15] LABS: CREATININE,RANDOM URINE 83.5 MG/DL
[2024-07-17 16:16] LABS: URIC ACID 2.6 MG/DL (3.1-7.8)
[2024-07-17 16:18] LABS: ALT/SGPT 12 U/L (7.0-40); AST/SGOT < 8 U/L (<34); BILIRUBIN,TOTAL 0.3 MG/DL (0.3-1.2); CREATININE FOR GFR 0.64 MG/DL (0.55-1.30); GLOMERULAR FILTRATION RATE > 60.0 (>60); LDH LACTATE DEHYDROGENASE 163 U/L (120-246)
[2024-07-17 16:46] LABS: HIV 1&2 SCREEN NEGATIVE (NEGATIVE)
[2024-07-17 16:54] LABS: HEPATITIS C VIRUS ABY INDEX 0.08 INDEX (<0.8)
[2024-07-17 17:18] LABS: GC DNA AMPLIFICATION NEGATIVE (NEGATIVE)
== END ==
LOC: M PLALAB 13:30
PROVIDERS: ATTEND Advanced Practice Midwife
DX: O10.011 Pre-existing essential hypertension complicating pregnancy, first trimester (principal); Z3A.00 Weeks of gestation of pregnancy not specified

== ENCOUNTER → 2024-09-18 | Outpatient (CLI) | payer OTHER | LOC: M WHC 13:20 | PROVIDERS: ATTEND Advanced Practice Midwife | DX: O30.042 Twin pregnancy, dichorionic/diamniotic, second trimester (principal); Z3A.20 20 weeks gestation of pregnancy ==

== ENCOUNTER → 2024-10-26 | Outpatient (CLI) | payer OTHER | LOC: M RAD 09:03 | PROVIDERS: ATTEND Advanced Practice Midwife | DX: O30.049 Twin pregnancy, dichorionic/diamniotic, unspecified trimester (principal); O36.5990 Maternal care for other known or suspected poor fetal growth, unspecified trimester, not applicable or unspecified; Z3A.25 25 weeks gestation of pregnancy ==

== ENCOUNTER → 2024-11-02 | Outpatient (CLI) | payer OTHER | LOC: M WHC 07:27 | PROVIDERS: ATTEND Advanced Practice Midwife | DX: O30.042 Twin pregnancy, dichorionic/diamniotic, second trimester (principal); O36.5992 Maternal care for other known or suspected poor fetal growth, unspecified trimester, fetus 2; Z3A.26 26 weeks gestation of pregnancy ==

== ENCOUNTER → 2024-11-02 | Outpatient (CLI) | payer OTHER ==
[2024-11-02 13:17] LABS: HEMATOCRIT 35.2 % (36.0-47.0); HEMOGLOBIN 12.2 g/dl (12.0-15.5); MEAN CORPUSCULAR HEMOGLOBIN 35.1 pg (27.0-33.0); MEAN CORPUSCULAR HGB CONC 34.7 g/dl (32.0-36.5); MEAN CORPUSCULAR VOLUME 101.1 fl (80.0-96.0); PLATELET COUNT, AUTOMATED 308 10^3/uL (150-450); RED BLOOD COUNT 3.48 10^6/uL (4.00-5.40); WHITE BLOOD COUNT 10.8 10^3/uL (4.0-10.0)
[2024-11-02 13:19] LABS: GLUCOSE CHALLENGE TEST 1 HOUR 97 MG/DL (LESS THAN 140)
[2024-11-02 13:48] LABS: HIV 1&2 SCREEN NEGATIVE (NEGATIVE)
[2024-11-02 13:56] LABS: HEPATITIS C VIRUS ABY INDEX 0.04 INDEX (<0.8)
== END ==
LOC: M PLALAB 08:39
PROVIDERS: ATTEND Advanced Practice Midwife
DX: O30.042 Twin pregnancy, dichorionic/diamniotic, second trimester (principal); Z3A.00 Weeks of gestation of pregnancy not specified

== ENCOUNTER → 2024-11-09 | Outpatient (CLI) | payer OTHER | LOC: M WHC 09:03 | PROVIDERS: ATTEND Advanced Practice Midwife | DX: O30.049 Twin pregnancy, dichorionic/diamniotic, unspecified trimester (principal); O36.5990 Maternal care for other known or suspected poor fetal growth, unspecified trimester, not applicable or unspecified ==

== ENCOUNTER → 2024-11-17 | Outpatient (CLI) | payer OTHER | LOC: M RAD 15:58 | PROVIDERS: ATTEND Advanced Practice Midwife | DX: O30.049 Twin pregnancy, dichorionic/diamniotic, unspecified trimester (principal); O36.5990 Maternal care for other known or suspected poor fetal growth, unspecified trimester, not applicable or unspecified ==

== ENCOUNTER → 2024-11-24 | Outpatient (CLI) | payer OTHER | LOC: M WHC 08:03 | PROVIDERS: ATTEND Advanced Practice Midwife | DX: O30.049 Twin pregnancy, dichorionic/diamniotic, unspecified trimester (principal); O36.5990 Maternal care for other known or suspected poor fetal growth, unspecified trimester, not applicable or unspecified; Z3A.29 29 weeks gestation of pregnancy ==

== ENCOUNTER → 2024-11-30 | Outpatient (CLI) | payer OTHER | LOC: M WHC 08:19 | PROVIDERS: ATTEND Advanced Practice Midwife | DX: O30.043 Twin pregnancy, dichorionic/diamniotic, third trimester (principal); O36.5930 Maternal care for other known or suspected poor fetal growth, third trimester, not applicable or unspecified; Z3A.30 30 weeks gestation of pregnancy ==

== ENCOUNTER → 2024-12-07 | Outpatient (CLI) | payer OTHER | LOC: M WHC 07:39 | PROVIDERS: ATTEND Advanced Practice Midwife | DX: O30.049 Twin pregnancy, dichorionic/diamniotic, unspecified trimester (principal); Z3A.31 31 weeks gestation of pregnancy ==

== ENCOUNTER → 2024-12-14 | Outpatient (CLI) | payer OTHER | LOC: M WHC 07:49 | PROVIDERS: ATTEND Advanced Practice Midwife | DX: O30.043 Twin pregnancy, dichorionic/diamniotic, third trimester (principal); O36.5930 Maternal care for other known or suspected poor fetal growth, third trimester, not applicable or unspecified; Z3A.32 32 weeks gestation of pregnancy ==

== ENCOUNTER → 2024-12-21 | Outpatient (CLI) | payer OTHER | LOC: M WHC 07:44 | PROVIDERS: ATTEND Advanced Practice Midwife | DX: O30.049 Twin pregnancy, dichorionic/diamniotic, unspecified trimester (principal); O36.5990 Maternal care for other known or suspected poor fetal growth, unspecified trimester, not applicable or unspecified ==

== ENCOUNTER → 2024-12-28 | Outpatient (CLI) | payer OTHER | LOC: M WHC 07:47 | PROVIDERS: ATTEND Advanced Practice Midwife | DX: O30.049 Twin pregnancy, dichorionic/diamniotic, unspecified trimester (principal); O36.5990 Maternal care for other known or suspected poor fetal growth, unspecified trimester, not applicable or unspecified; Z3A.34 34 weeks gestation of pregnancy ==

== ENCOUNTER 2024-12-30 07:37 | Outpatient (CLI) | payer OTHER ==
[~2024-12-30] VITALS: Ht 170.2 cm; Wt 93.0 kg
[2024-12-30] MEDS ORDERED: VENL75TA2 PO ×2 (08:33→08:48)
[2024-12-30] MEDS ORDERED: HOME MED LIST COMPLETE! XX SCH (08:35)
[2024-12-30] MEDS ORDERED: BETAMETHASONE SOLUSPAN 6MG/ML 5ML VIAL IM SCH (09:00)
[2024-12-30] MEDS ORDERED: VENL75CA47 PO (09:20)
[2024-12-31] MEDS ORDERED: OMEP1CAP73 PO (07:38)
[2025-01-01] MEDS ORDERED: ONDA-282 (07:56)
== END 2024-12-30 09:00 | disposition home or self-care (01) ==
LOC: M LDO 07:37
PROVIDERS: ATTEND Advanced Practice Midwife
DX: O36.5930 Maternal care for other known or suspected poor fetal growth, third trimester, not applicable or unspecified (principal); O10.013 Pre-existing essential hypertension complicating pregnancy, third trimester; O30.043 Twin pregnancy, dichorionic/diamniotic, third trimester; O34.211 Maternal care for low transverse scar from previous cesarean delivery; Z3A.34 34 weeks gestation of pregnancy
CPT/HCPCS: 59025; 96372; G0463

== ENCOUNTER 2024-12-31 07:26 | Outpatient (CLI) | payer OTHER ==
[~2024-12-31 07:26] MED LIST changes: +VENL75CA47 PO; +VENL75TA2 PO
[2024-12-31] MEDS ORDERED: OMEP1CAP73 PO (07:38)
[2024-12-31] MEDS ORDERED: HOME MED LIST COMPLETE! XX SCH (07:40)
[2024-12-31] MEDS: BETAMETHASONE SOLUSPAN 6MG/ML 5ML VIAL IM ONE (07:48)
[2025-01-01] MEDS ORDERED: ONDA-282 (07:56)
== END 2024-12-31 08:00 | disposition home or self-care (01) ==
LOC: M LDO 07:26
PROVIDERS: ATTEND Obstetrics & Gynecology
DX: O36.5931 Maternal care for other known or suspected poor fetal growth, third trimester, fetus 1 (principal); O30.043 Twin pregnancy, dichorionic/diamniotic, third trimester; O10.013 Pre-existing essential hypertension complicating pregnancy, third trimester; O34.211 Maternal care for low transverse scar from previous cesarean delivery; O09.213 Supervision of pregnancy with history of pre-term labor, third trimester; Z3A.35 35 weeks gestation of pregnancy
CPT/HCPCS: 96372; J0702

== ENCOUNTER → 2025-01-01 | Outpatient (REF) | payer OTHER ==
[~2025-01-01] MED LIST changes: +OMEP1CAP73 PO; +ONDA-282
== END ==
LOC: M SFHCWAGY 17:17
PROVIDERS: ATTEND Advanced Practice Midwife
DX: Z34.83 Encounter for supervision of other normal pregnancy, third trimester (principal)

== ENCOUNTER → 2025-01-05 | Outpatient (CLI) | payer OTHER | LOC: M WHC 12:13 | PROVIDERS: ATTEND Advanced Practice Midwife | DX: O30.049 Twin pregnancy, dichorionic/diamniotic, unspecified trimester (principal); O36.5990 Maternal care for other known or suspected poor fetal growth, unspecified trimester, not applicable or unspecified; Z3A.35 35 weeks gestation of pregnancy ==

== ENCOUNTER 2025-01-06 04:18 | Inpatient (IN) | payer OTHER ==
[~2025-01-06] VITALS: Ht 170.2 cm; Wt 91.8 kg
[2025-01-06] VITALS (9 sets, daily range): BP systolic 125–137; BP diastolic 72–86; TEMP 98.3; O2SAT 95–97
[2025-01-06] MEDS: LACTATED RINGER'S 1000 ML IV STA (06:17)
[2025-01-06 06:31] LABS: HEMOGLOBIN 11.6 g/dl (12.0-15.5); MEAN CORPUSCULAR HEMOGLOBIN 32.9 pg (27.0-33.0); MEAN CORPUSCULAR HGB CONC 34.1 g/dl (32.0-36.5); MEAN CORPUSCULAR VOLUME 96.3 fl (80.0-96.0); PLATELET COUNT, AUTOMATED 253 10^3/uL (150-450); RED BLOOD COUNT 3.53 10^6/uL (4.00-5.40); WHITE BLOOD COUNT 11.1 10^3/uL (4.0-10.0)
[2025-01-06 07:24] LABS: HIV 1&2 SCREEN NEGATIVE (NEGATIVE)
[2025-01-06] MEDS: LR 1,000 ML IV SCH (07:28)
[2025-01-06] MEDS: BICITRA 30ML SOLN UDC PO ONE (07:33)
[2025-01-06] MEDS: ceFAZolin SODIUM 2 GM in DEXTROSE 5% (D5W) ADV/MINI-BAG 50 ML IV ONE (07:34)
[2025-01-06] MEDS ORDERED: KETOROLAC 60MG 2ML VIAL As Ordered ONE (07:39)
[2025-01-06] MEDS ORDERED: MORPHINE PRES-FREE INJ 10 MG/10 ML VIAL As Ordered ONE (07:39)
[2025-01-06] MEDS ORDERED: ONDANSETRON 4MG 2ML VIAL As Ordered ONE (07:39)
[2025-01-06] MEDS ORDERED: ACETAMINOPHEN 1000MG/100ML IV BAG As Ordered ONE (07:40)
[2025-01-06] MEDS ORDERED: OXYTOCIN 30UNITS IN 0.9% NaCl 500ML IV BAG As Ordered ONE (07:40)
[2025-01-06] MEDS ORDERED: LIDOCAINE 2% 100MG/5ML SDV (FOR ANES.) As Ordered ONE (07:55)
[2025-01-06] MEDS ORDERED: fentaNYL 100 MCG/2 ML INJECTION As Ordered ONE (08:25)
[2025-01-06] MEDS ORDERED: propofoL 200 MG/20 ML VIAL As Ordered ONE (08:34)
[2025-01-06] MEDS ORDERED: ONDANSETRON 4MG 2ML VIAL IV PRN ×2 (09:10→09:20)
[2025-01-06] MEDS ORDERED: ANUSOL HC CREAM 30GM TOP PRN (09:10)
[2025-01-06] MEDS ORDERED: SIMETHICONE 80MG CHEW TAB PO PRN (09:10)
[2025-01-06] MEDS ORDERED: LR 1,000 ML IV SCH (09:10)
[2025-01-06] MEDS ORDERED: RHOGAM 300MCG (1500IU) INJ IM SCH (09:10)
[2025-01-06] MEDS ORDERED: MORPHINE 4 MG/ML 1ML VIAL IV PRN (09:10)
[2025-01-06] MEDS ORDERED: CALCIUM CARBONATE 500 MG CHEW U/D PO PRN (09:10)
[2025-01-06 09:18] LABS: CORD GAS ABE A -3.7; CORD GAS HCO3 A 22.6 MMOL/L; CORD GAS O2 SAT A 69.6 %; CORD GAS PCO2 A 45.5 mmHg; CORD GAS PH A 7.314 UNITS; CORD GAS PO2 A 27.7 mmHg; CORD GAS SBC A 20.8 MMOL/L
[2025-01-06] MEDS ORDERED: HYDROMORPHONE HCL 0.5 MG/ 0.5 ML SYRINGE IV PRN (09:20)
[2025-01-06] MEDS ORDERED: NALOXONE INJ 0.4MG/1ML VIAL IV PRN ×2 (09:20)
[2025-01-06] MEDS ORDERED: diphenhydrAMINE 50MG/ML VIAL IV PRN (09:20)
[2025-01-06] MEDS ORDERED: **NOTE PATIENT COMMENT** MISC XX SCH (09:20)
[2025-01-06] MEDS ORDERED: fentaNYL 100 MCG/2 ML INJECTION IV PRN (09:20)
[2025-01-06] MEDS ORDERED: MEPERIDINE 25 MG/ML 1ML VIAL IV PRN (09:20)
[2025-01-06 09:21] LABS: CORD GAS ABE V -3.9; CORD GAS HCO3 V 20.6 MMOL/L; CORD GAS O2 SAT V 86.1 %; CORD GAS PCO2 V 35.8 mmHg; CORD GAS PH V 7.378 UNITS; CORD GAS PO2 V 37.2 mmHg; CORD GAS TCO2 V 21.7 MMOL/L
[2025-01-06 09:23] LABS: CORD GAS ABE A -2.8; CORD GAS HCO3 A 24.5 MMOL/L; CORD GAS O2 SAT A 37.9 %; CORD GAS PCO2 A 51.2 mmHg; CORD GAS PH A 7.297 UNITS; CORD GAS PO2 A 16.5 mmHg; CORD GAS SBC A 20.5 MMOL/L
[2025-01-06 09:26] LABS: CORD GAS ABE V -2.8; CORD GAS HCO3 V 22.5 MMOL/L; CORD GAS O2 SAT V 84.8 %; CORD GAS PCO2 V 41.4 mmHg; CORD GAS PH V 7.354 UNITS; CORD GAS PO2 V 37.5 mmHg; CORD GAS SBC V 21.8 MMOL/L; CORD GAS TCO2 V 23.8 MMOL/L
[2025-01-06] MEDS: OXYTOCIN DRIP 30 UNITS in IV 1 EA IV SCH (09:36)
[2025-01-06] MEDS ORDERED: oxyCODONE 5MG TAB As Ordered ONE (09:44)
[2025-01-06] MEDS: oxyCODONE 5MG TAB PO PRN (09:45)
[2025-01-06] MEDS ORDERED: METOCLOPRAMIDE INJ 10MG/2ML VIAL As Ordered ONE (10:02)
[2025-01-06] MEDS: METOCLOPRAMIDE INJ 10MG/2ML VIAL IV PRN (10:03)
[2025-01-06] MEDS: KETOROLAC 30 MG/ML 1ML VIAL IV SCH (14:24)
[2025-01-06] MEDS: SLF 3 ML SYR IV SCH (14:24)
[2025-01-06 18:20] LABS: HEPATITIS C VIRUS ABY INDEX 0.06 INDEX (<0.8)
[2025-01-06] MEDS: DOCUSATE SODIUM 100MG CAPSULE PO SCH (20:32)
[2025-01-06] MEDS: LABETALOL 100MG TAB PO SCH (20:51)
[2025-01-07] VITALS (8 sets, daily range): BP systolic 126–162; BP diastolic 74–95; O2SAT 76–99
[2025-01-07] MEDS: PERCOCET 5MG/325MG TAB PO PRN ×2 (00:26→07:51)
[2025-01-07 06:39] LABS: HEMATOCRIT 28.6 % (36.0-47.0); HEMOGLOBIN 9.7 g/dl (12.0-15.5); MEAN CORPUSCULAR HGB CONC 33.9 g/dl (32.0-36.5); MEAN CORPUSCULAR VOLUME 100.4 fl (80.0-96.0); PLATELET COUNT, AUTOMATED 189 10^3/uL (150-450); RED BLOOD COUNT 2.85 10^6/uL (4.00-5.40); WHITE BLOOD COUNT 12.6 10^3/uL (4.0-10.0)
[2025-01-07] MEDS: PRENATAL VITAMINS CHEWABLE TABLET PO SCH (10:06)
[2025-01-07] MEDS: IBUPROFEN 800 MG TAB PO SCH (10:51)
[2025-01-07] MEDS: VENLAFAXINE **XR** 75MG CAPSULE PO SCH (10:51)
[2025-01-07] MEDS: MOM 30ML SUSPENSION UDC PO PRN (20:03)
[2025-01-08 02:00] VITALS: BP 150/82; O2SAT 96
[2025-01-08 05:59] VITALS: BP 155/92; O2SAT 98
[2025-01-08 08:09] VITALS: BP 155/92
[2025-01-08] MEDS: MEASLES,MUMPS,RUBELLA VACCINE INJ (MMR-II) SC.IMMUN ONE (09:00)
[2025-01-08] MEDS: ACETAMINOPHEN 500 MG TAB PO PRN (10:32)
== END 2025-01-08 13:12 | disposition home or self-care (01) | DRG 784 ==
LOC: PREOBSVTOIN 04:18 → M LDI 05:37 → M OBS 10:46
PROVIDERS: ADMIT Obstetrics & Gynecology; ATTEND Obstetrics & Gynecology
PROC: 0UB70ZZ Excision of Bilateral Fallopian Tubes, Open Approach (ICD-10-PCS; 2025-01-06)
PROC: 10D00Z1 Extraction of Products of Conception, Low, Open Approach (ICD-10-PCS; principal; 2025-01-06 07:30)
DX: O34.211 Maternal care for low transverse scar from previous cesarean delivery (principal); O10.92 Unspecified pre-existing hypertension complicating childbirth; Z37.2 Twins, both liveborn; Z3A.36 36 weeks gestation of pregnancy; O30.043 Twin pregnancy, dichorionic/diamniotic, third trimester; O36.5990 Maternal care for other known or suspected poor fetal growth, unspecified trimester, not applicable or unspecified; Z30.2 Encounter for sterilization

== ENCOUNTER → 2025-03-05 | Outpatient (REF) | payer OTHER ==
[2025-03-09 14:32] LABS: HPV APTIMA Not Detected (Not Detected)
== END ==
LOC: M SFHCWAGY 13:12
PROVIDERS: ATTEND Advanced Practice Midwife
DX: R87.610 Atypical squamous cells of undetermined significance on cytologic smear of cervix (ASC-US) (principal)
CPT/HCPCS: 87624; G0123

== ENCOUNTER → 2025-09-04 | Outpatient (REF) | payer OTHER ==
[2025-09-04 18:06] LABS: APPEARANCE, URINE CLEAR (CLEAR); BACTERIA, URINE AUTO 1+ (NEGATIVE); BILIRUBIN, URINE AUTO NEGATIVE (NEGATIVE); BLOOD, URINE BLOOD NEGATIVE (NEGATIVE); GLUCOSE, URINE (UA) AUTO NEGATIVE (NEGATIVE); KETONE, URINE AUTO NEGATIVE (NEGATIVE); LEUKOCYTE ESTERASE, URINE AUTO TRACE (NEGATIVE); MUCUS, URINE SMALL (NEGATIVE); NITRITE, URINE AUTO NEGATIVE (NEGATIVE); PROTEIN, URINE AUTO NEGATIVE (NEGATIVE); RBC, URINE AUTO 0 /HPF (0-3); SPECIFIC GRAVITY URINE AUTO 1.001 (1.002-1.035); SQUAMOUS EPITHELIAL CELL UR AU 1 /HPF (0-6); UROBILINOGEN, URINE AUTO 0.2 mg/dL (0.0-2.0); WBC, URINE AUTO 2 /HPF (0-3)
== END ==
LOC: M LAB REF 17:49
PROVIDERS: ATTEND Physician Assistant Medical
DX: N39.0 Urinary tract infection, site not specified (principal)